=== PATIENT | female | born 1960 | race Caucasian/White ===

== ENCOUNTER 2018-05-16 18:48 | Emergency (ER) | payer OTHER ==
[~2018-05-16] VITALS: Ht 165.1 cm; Wt 81.7 kg
[2018-05-16] MEDS ORDERED: PROZAC40 MG (19:01)
[2018-05-16] MEDS ORDERED: GABAPENTIN 100100 MG (19:02)
[2018-05-16] MEDS ORDERED: SYNTHROID88 MCG (19:02)
[2018-05-16 19:15] LABS: ABSOLUTE BASOPHILS 0.1 thou/uL (0.0-0.2); ABSOLUTE EOSINOPHILS 0.1 thou/uL (0.0-0.7); ABSOLUTE LYMPHOCYTES 1.1 thou/uL (0.8-5.3); ABSOLUTE MONOCYTES 0.5 thou/uL (0.0-1.2); ABSOLUTE NEUTROPHILS 8.6 thou/uL (1.6-8.1); BASOPHILS 0.7 %; EOSINOPHILS 0.5 %; HEMATOCRIT 42.9 % (37.0-47.0); HEMOGLOBIN 14.6 gm/dL (12.0-15.0); LYMPHOCYTES 10.4 %; MCH 31.4 pg (26.0-34.0); MCHC 34.1 g/dL (28.0-37.0); MCV 92.2 fL (80.0-100.0); MONOCYTES 5.2 %; MPV 7.7 fl. (7.2-11.1); NUCLEATED RBCS 0 /100WBC; PLATELET COUNT* 259 thou/uL (150-400); POLYS 83.2 %; RBC 4.66 mil/uL (4.20-5.00); RDW-CV 13.4 % (10.5-14.5); WBC 10.3 thou/uL (4.0-11.0)
[2018-05-16 19:24] LABS: ANION GAP 8 mmol/L (7-16); BUN 18 mg/dL (7-18); CALCIUM 9.8 mg/dL (8.5-10.1); CHLORIDE 104 mmol/L (98-107); CO2 27 mmol/L (21-32); CREATININE 0.9 mg/dL (0.6-1.3); GLUCOSE 95 mg/dL (70-99); POTASSIUM 3.9 mmol/L (3.5-5.1); SODIUM 139 mmol/L (136-145)
[2018-05-16 19:26] LABS: APTT 25.3 Seconds (25.0-31.3)
[2018-05-16 19:39] LABS: ALKALINE PHOSPHATASE 62 U/L (46-116); CK-MB MASS 0.6 ng/mL (<0.5-3.6); LIPASE 115 U/L (73-393); MAGNESIUM 2.1 mg/dL (1.8-2.4); NT-PRO BRAIN NAT PEPTIDE 83 pg/mL (<300); SGOT 123 U/L (15-37); SGPT 82 U/L (30-65); TOTAL BILIRUBIN 0.8 mg/dL (<0.1-1.0); TOTAL PROTEIN 8.1 g/dL (6.4-8.2); TROPONIN-I LEVEL <0.06 ng/mL (<0.06)
[2018-05-16] MEDS ORDERED: CARAFATE 1 GM TA1 GM PO (22:20)
[2018-05-16 22:35] VITALS: BP 134/81
--- NOTE | 2018-05-18 12:53 | EKG ---
[place] [address] ELECTROCARDIOGRAM REPORT Name: LORETA MORSE Room: [facility]#: [id number] Admission: 05/16/18 Attend Phys: Discharge: 05/16/18 Date of : 58 Report #: [id number] THIS REPORT FOR: //name// [facility] ED Test Date: 2018-05-16 Test Time: 18:55:49 Pat Name: LORETA MINI Department: Room: Gender: F [employer]: SHARON : 1960 Requested By: Man Donovan Order Number: [id number] MD: Julien Fuller Measurements Intervals [place] Rate: 81 P: 60 NC: 167 QRS: 23 QRSD: 94 T: 37 QT: 397 QTc: 461 Interpretive Statements Sinus rhythm Baseline wander in lead(s) III,aVF No previous ECG available for comparison Electronically Signed On 05-18-2018 12:53:32 CDT by Julien Fuller [email or web address] <ELECTRONICALLY SIGNED> By: Julien Fuller MD, [facility] 05/18/18 1253 1855 54 Julien Fuller MD, FACC /EPI
== END 2018-05-16 22:35 | disposition home or self-care (01) ==
LOC: M.ERS 18:48
PROVIDERS: Family Medicine
DX: R10.9 Unspecified abdominal pain (principal)